=== PATIENT | female | born 1965 | race Caucasian/White ===

== ENCOUNTER 2024-08-10 18:35 | Emergency (ER) | payer BC, SELFPAY ==
[2024-08-10 18:37] VITALS: BP 151/66
[2024-08-10 21:11] VITALS: BP 116/68
[2024-08-10 21:12] VITALS: BMI 22.6
--- NOTE | 2024-08-10 22:11 | ED.GENMED ---
History of Present Illness
General
Chief Complaint: DVT/Possible Blood Clot
Source: patient
Exam Limitations: none
Time Seen by Provider: 08/10/24 22:00
Nursing documentation reviewed up to this point in time: agreed with
History of Present Illness
History of Present Illness:
Note:
CHIEF COMPLAINT(S)
- Sensation and worsening discomfort in the back of the leg.
HISTORY OF PRESENT ILLNESS
The patient is a 58-year-old female who presents with a sensation in the back of her leg that has been progressively worsening. She reports having had an X-ray conducted previously and is scheduled for an MRI on . The patient has been
following up with an orthopedic surgeon, Dr. Martínez. During previous visits, she was experiencing less pain. Recently, her symptoms have intensified, prompting further evaluation to rule out additional concerns such as a meniscal tear or a Bakers
cyst.
The initial sensations included discomfort described as a bruise-like feeling, though no actual bruising was observed. The area is very sensitive to touch, and the patient is unable to fully extend her knee. Despite these symptoms, she continued to
walk and participated in activities such as tennis and pickleball until a few days ago, noting improvement during exercise. In the last four days, the condition has deteriorated, leading to her current visit.
The patient was informed that the symptoms might be associated with a Bakers cyst, potentially resulting from a meniscal injury, which could cause fluid accumulation. She is advised to manage the symptoms with Motrin to alleviate discomfort.
PLAN
- Scheduled MRI to evaluate for meniscal tear.
- Recommendation of using Motrin for symptom relief.
- Follow-up with the orthopedic surgeon, Dr. Martínez, after MRI results are available.
DIFFERENTIAL DIAGNOSIS
The Differential Diagnosis includes, in no particular order and is not limited to:
1. Meniscal Tear
2. Bakers Cyst
3. Osteoarthritis
4. Ligament Injury
5. Tendonitis
6. Deep Vein Thrombosis (ultrasound negative for DVT)
7. Muscle Strain
8. Nerve Impingement
9. Rheumatoid Arthritis
Disposition:
SUMMARY OF ENCOUNTER
The patient is a 58-year-old female who presented to the emergency department with acute and chronic discomfort localized to the right posterior knee. This pain has been exacerbated by athletic activities. She has been under the care of
Mauricio, an orthopedic surgeon, and is scheduled for an MRI on Sunday. An ultrasound conducted during this visit ruled out deep vein thrombosis (DVT) and confirmed the presence of a Bakers cyst in the right knee. The current management plan
includes continuing the use of nonsteroidal anti-inflammatory drugs (NSAIDs) and following up with Dr. Martínez.
PLAN
The patient is advised to continue taking NSAIDs for symptom relief and to follow up with Dr. Martínez after her scheduled MRI for further evaluation and management based on the results.
INDEPENDENT REVIEW OF LABS AND INTERPRETATION OF TESTS
- My independent interpretation of the ultrasound today shows no evidence of a DVT and confirms a Bakers cyst on the right knee.
PATIENT EDUCATION AND COUNSELING
The patient was educated on the nature of a Bakers cyst and the importance of continuing the use of NSAIDs for symptom relief. She was also informed about the next steps in her diagnosis process, which includes the scheduled MRI and follow-up with
her orthopedic surgeon.
FOLLOW-UP INSTRUCTIONS
The patient is instructed to follow up with Dr. Martínez, the orthopedic surgeon, after the MRI results are available for further evaluation and management.
MEDICATION RECONCILIATION
The patient is to continue the use of NSAIDs as previously recommended for managing knee pain and inflammation.
MEDICAL DECISION MAKING
- Number and Complexity of Problems Addressed: Chronic conditions affecting care include right posterior knee pain with suspected Bakers cyst and a ruled-out DVT.
- Data:
- Category 1: My independent interpretation of ultrasound confirms Bakers cyst, no DVT.
- Risk: Continued management includes the use of NSAIDs, with consideration for potential MRI findings prompting further intervention.
DIAGNOSIS
- Bakers Cyst (M71.20)
Past History
Past History
ED Past Medical History: Other (Payton's thyroiditis)
ED Past Surgical History: None
Social History
Tobacco: Non-smoker
Personal:
Living: with family
Review of Systems
Review of Systems
Allergies reviewed?: Yes
All Other Systems: ROS reviewed and negative except as documented in HPI and ROS
Constitutional: Reports no symptoms
EENT: Reports no symptoms
Respiratory: Reports no symptoms
Cardiac: Reports no symptoms
ABD/GI: Reports no symptoms
: Reports no symptoms
Musculoskeletal: Reports joint swelling and muscle stiffness
Skin: Reports no symptoms
Neurological: Reports no symptoms
Endocrine: Reports no symptoms
Hematologic/Lymphatic: Reports no symptoms
Psychiatric: Reports no symptoms
Phy Exam
General Physical Exam
General Presentation: well appearing and mild distress
General age: appears stated age
General Skin: warm and dry
General Habitus: normal
General Mental: alert
Course
Orders/Labs/Results
Orders:
Orders
08/10/24 18:37
US Periph Venous LOWER Ext RT Urgent
Comment:
Reason For Exam: pain to posterior calf
Vital Signs
Initial and Last Documented VS:
Initial Vital Signs
Temp Pulse Resp BP Pulse Ox
97.5 F 61 16 151/66 100
08/10/24 18:37 08/10/24 18:37 08/10/24 18:37 08/10/24 18:37 08/10/24 18:37
Last Documented Vital Signs
Temp Pulse Resp BP Pulse Ox
98.4 F 62 17 116/68 98
08/10/24 21:11 08/10/24 21:11 08/10/24 21:11 08/10/24 21:11 08/10/24 22:19
*Pulse Oximetry
SaO2: 98
Oxygen Mode of Delivery: Room air
Patient hypoxic: no
*Critical Care Note
Total Time (30-74mins, 75-104mins- exclusive of procedures): Not Applicable
ED Attending Note
-
Portions of this chart may have been created with voice recognition software.� Occasional wrong word or��sound alike� substitutions may have occurred due to the inherent limitations of voice recognition software.
Discharge Plan
Departure
Patient Disposition: Home (Routine Discharge)
Date of Disposition: 08/10/24
Time of Disposition: 22:16
Patient with high blood pressure during this ER visit?: No
Condition: Good
Discharge Problem:
Martinez cyst, Knee pain
Instructions: Martinez's Cyst (DC), Knee pain - ED discharge instructions
Prescriptions:
No Action
[place] Thyroid
75 mg PO DAILY
Referrals:
Andrzej Montejo MD [Family Provider]
Ra Hough MD [Active, Orthopedics]
Activity Restrictions/Additional Instructions:
Thank You for choosing [facility].
It was a pleasure meeting you and taking part in your care. We hope for your continued healing and wellness.
Please read discharge instructions in their entirety. However, they are for general education and may not describe your exact diagnosis at discharge. Information on your ER visit and medical conditions were discussed with you along with appropriate
follow up information...
If indicated, please take your medications as instructed and indicated on discharge paperwork.
Please schedule a follow up appointment as directed. Call to schedule an appointment
Please return to the emergency department with ANY change in, persisting, or worsening of symptoms. If any of your symptoms do not improve, or persist, or become more severe within 6-12 hours, please return to the emergency department for further
care.
Please return to the emergency department if you develop a headache, neck pain/stiffness, fever greater than 100.4F, chest pain, shortness of breath, persistent nausea, vomiting, slurred speech, difficulty walking, numbness/tingling, weakness, signs
of infection or any other symptoms that are worrisome to you.
If you have any questions or concerns please do not hesitate to call the Hospital at or E-mail me directly at [email or web address]
Interventions
Interventions:
*Risk Screen - Suicide Last Done: 08/10/24 18:37
*General Assessment Last Done: 08/10/24 18:37
*Neglect/Abuse Screening Last Done: 08/10/24 18:37
*ED- Fall Risk Assessment Last Done: 08/10/24 22:09
*ED COVID-19 Vaccine History Last Done: 08/10/24 22:09
*Nursing Disposition Last Done: 08/10/24 22:12
ED- Cardiac Assessment Last Done: 08/10/24 22:09
ED- Pulmonary Assessment Last Done: 08/10/24 22:09
ED-Peripheral Vascular Assessment Last Done: 08/10/24 22:11
ED-Skin Assessment Last Done: 08/10/24 22:09
Discharge Date and Time
Discharge Date/Time: 08/10/24 22:43
Print Language: FAROESE
== END 2024-08-10 22:43 | disposition home or self-care (01) ==
LOC: EMR 18:35
PROVIDERS: EMERGENCY PHYSICIAN Student in an Organized Health Care Education/Training Program; FAMILY PHYSICIAN Internal Medicine Geriatric Medicine
DX: M71.21 Synovial cyst of popliteal space [Baker], right knee (principal); M25.561 Pain in right knee; M79.604 Pain in right leg; E06.3 Autoimmune thyroiditis; Z88.5 Allergy status to narcotic agent
CPT/HCPCS: 99284; 93971